=== PATIENT | female | born 1960 | race Two or more races ===

== ENCOUNTER 2020-05-13 17:07 | Inpatient (IN) | payer MEDICARE, OTHER ==
[~2020-05-13] VITALS: Ht 160 cm; Wt 172.8 kg
[2020-05-13 17:07] VITALS: BP 103/76
--- NOTE | 2020-05-13 17:45 | Emergency Room Report ---
History of Present Illness General Chief Complaint: Multiple Trauma/Fall Source: Patient (Ashia Muniz) Present Illness HPI 59-year-old female with history of diabetes, hypertension, edema, and morbid obesity here brought in by paramedics due to fall in the bathroom. Patient reports that she slipped on a carpet and fell and has been really difficult for her to ambulate lately. Patient also has abdominal pain hernia. Patient reports that she last saw her primary doctor few days ago and was told to continue taking the same dose of water pills, insulin, diabetes medication blood pressure medication. Patient is also taking gabapentin and Tylenol for pain. Denies any head injury loss of consciousness. Denies any new onset tingling numbness in lower extremities. (Ashia Muniz) Allergies: Coded Allergies: CIPROFLOXACIN (Verified Allergy, Unknown, 05/13/20) LATEX (Verified Allergy, Unknown, 05/13/20) PENICILLINS (Verified Allergy, Unknown, 05/13/20) PHENYTOIN (Verified Allergy, Unknown, 05/13/20) COVID-19 Screening Contact w/high risk pt: No Recent Travel to affected area: No Experienced COVID-19 symptoms?: No COVID-19 Testing performed AU PAIR: No (Ashia Muniz) Patient History Past Medical History: see triage record Past Surgical History: none Pertinent Family History: none Now: No Immunizations: UTD Reviewed Nursing Documentation: PMH: Agreed; PSxH: Agreed (Ashia Muniz) Nursing Documentation-PMH Past Medical History: No History, Except For Hx Diabetes: Yes (Ashia Muniz) Review of Systems All Other Systems: negative except mentioned in HPI (Ashia Muniz) Physical Exam Vital Signs Date Time Temp Pulse Resp B/P (MAP) Pulse Ox O2 Delivery O2 Flow Rate FiO2 05/13/20 17:01 98.4 76 16 103/76 (85) 96 Room Air Sp02 EP Interpretation: abnormal - Elevated blood sugar General Appearance: mild distress Head: normocephalic, atraumatic Eyes: bilateral eye normal inspection, bilateral eye PERRL ENT: hearing grossly normal, normal pharynx, no angioedema, normal voice Neck: full range of motion, supple/symm/no masses Respiratory: chest non-tender, lungs clear, normal breath sounds, no rhonchi, no respiratory distress, no retraction, no wheezing, speaking full sentences Cardiovascular #1: regular rate, rhythm, no edema, no murmur Cardiovascular #2: 2+ dorsalis pedis (R), 2+ dorsalis pedis (L) Gastrointestinal: normal bowel sounds, non tender, soft, no mass, no organomegaly, no peritonitis, no bruit, no guarding, no pulsatile mass, no rebound Rectal: deferred Genitourinary: no CVA tenderness Musculoskeletal: back normal, no calf tenderness, swelling - Left lower extremity and ankle Neurologic: alert, motor strength/tone normal, oriented x3, sensory intact, responsive, speech normal Psychiatric: judgement/insight normal, memory normal, mood/affect normal, no suicidal/homicidal ideation Skin: no rash Lymphatic: no adenopathy (Ashia Muniz) Medical Decision Making PA Attestation All my diagnosis and treatment plans were reviewed ad discussed with my supervising physician Dr. Warren (Ashia Muniz) Diagnostic Impression: Primary Impression: At high risk for falls Additional Impressions: Hyperglycemia Ankle sprain ER Course 59-year-old female with history of diabetes, hypertension, edema, and morbid obesity here brought in by paramedics due to fall in the bathroom. Patient reports that she slipped on a carpet and fell and has been really difficult for her to ambulate lately. Patient also has abdominal pain hernia. Patient reports that she last saw her primary doctor few days ago and was told to continue taking the same dose of water pills, insulin, diabetes medication blood pressure medication. Patient is also taking gabapentin and Tylenol for pain. Denies any head injury loss of consciousness. Denies any new onset tingling numbness in lower extremities. Ddx considered but are not limited to: Fall risk, morbid obesity, DKA, hyperglycemia, ankle sprain, ankle strain, ankle fracture, ankle contusion Vital signs: are WNL, pt. is afebrile H&PE are most consistent with: High fall risk, hyperglycemia, ankle sprain ORDERS: Left ankle x-ray, left foot x-ray, left knee x-ray, pelvic CT noncontrast, CBC, CMP, UA, PT and PTT, troponin ED INTERVENTIONS: Tramadol Patient was admitted with diagnosis of fall risk and hyperglycemia to Dr. Grissom under supervision of : Kelvin pt stable at time of admission (Ashia Muniz) ER Course Patient was noted to have some difficulty with ambulation. Patient is unable to ambulate with a steady gait due to prior back injury as well as left ankle pain. X-ray imaging showed no evidence of fracture. Dr. Patrick Johnston was contacted for admission due to recent injury and inability to ambulate as well as uncontrolled diabetes. Labs Test 05/13/20 17:20 05/13/20 18:05 Urine Color Pale yellow Urine Appearance Clear Urine pH 6.5 (4.5-8.0) Urine Specific [place] 1.005 (1.005-1.035) Urine Protein Negative (NEGATIVE) Urine Glucose (UA) 4+ (NEGATIVE) Urine Ketones Negative (NEGATIVE) Urine Blood Negative (NEGATIVE) Urine Nitrite Negative (NEGATIVE) Urine Bilirubin Negative (NEGATIVE) Urine Urobilinogen Normal MG/DL (0.0-1.0) Urine Leukocyte Esterase Negative (NEGATIVE) Urine Opiates Screen Negative (NEGATIVE) Urine Barbiturates Screen Negative (NEGATIVE) Phencyclidine (PCP) Screen Negative (NEGATIVE) Urine Amphetamines Screen Negative (NEGATIVE) Urine Benzodiazepines Screen Negative (NEGATIVE) Urine Cocaine Screen Negative (NEGATIVE) Urine Marijuana (THC) Screen Negative (NEGATIVE) Acetone, Qualitative Negative White Blood Count 12.0 K/UL (4.8-10.8) Red Blood Count 5.09 M/UL (4.20-5.40) Hemoglobin 13.1 G/DL (12.0-16.0) Hematocrit 43.4 % (37.0-47.0) Mean Corpuscular Volume 85 FL (80-99) Mean Corpuscular Hemoglobin 25.7 PG (27.0-31.0) Mean Corpuscular Hemoglobin Concent 30.1 G/DL (32.0-36.0) Red Cell Distribution Width 17.6 % (11.6-14.8) Platelet Count 369 K/UL (150-450) Mean Platelet Volume 6.3 FL (6.5-10.1) Neutrophils (%) (Auto) 72.0 % (45.0-75.0) Lymphocytes (%) (Auto) 17.3 % (20.0-45.0) Monocytes (%) (Auto) 5.9 % (1.0-10.0) Eosinophils (%) (Auto) 3.7 % (0.0-3.0) Basophils (%) (Auto) 1.1 % (0.0-2.0) Prothrombin Time 10.5 SEC (9.30-11.50) Prothromb Time International Ratio 0.9 (0.9-1.1) Activated Partial Thromboplast Time 26 SEC (23-33) Sodium Level 138 MMOL/L (136-145) Potassium Level 3.5 MMOL/L (3.5-5.1) Chloride Level 98 MMOL/L (98-107) Carbon Dioxide Level 32 MMOL/L (21-32) Anion Gap 8 mmol/L (5-15) Blood Urea Nitrogen 22 mg/dL (7-18) Creatinine 1.3 MG/DL (0.55-1.30) Estimat Glomerular Filtration Rate 42.2 mL/min (>60) Glucose Level 271 MG/DL (74-106) Calcium Level 9.3 MG/DL (8.5-10.1) Total Bilirubin 0.2 MG/DL (0.2-1.0) Aspartate Amino Transf (AST/SGOT) 18 U/L (15-37) Alanine Aminotransferase (ALT/SGPT) 27 U/L (12-78) Alkaline Phosphatase 195 U/L (46-116) Troponin I 0.000 ng/mL (0.000-0.056) Total Protein 8.3 G/DL (6.4-8.2) Albumin 3.3 G/DL (3.4-5.0) Globulin 5.0 g/dL Albumin/Globulin Ratio 0.7 (1.0-2.7) (Korey Warren MD) Other X-Ray Diagnostic Results Other X-Ray Diagnostic Results #1: X-Ray ordered: left foot # of Views/Limited Vs Complete: 3 View Indication: Pain EP Interpretation: Yes PA Xray: Interpretation reviewed, by supervising MD, and agrees with findings. Interpretation: no dislocation, no soft tissue swelling, no fractures Impression: No acute disease Electronically Signed by: Ashia Scanlon PA-C Other X-Ray Diagnostic Results #2: X-Ray ordered: left ankle # of Views/Limited Vs Complete: 3 View Indication: Swelling EP Interpretation: Yes PA Xray: by supervising , and agrees with findings. Interpretation: no dislocation, no fractures Impression: No acute disease Electronically Signed by: Ashia Scanlon PA-C Other X-Ray Diagnostic Results #3: X-Ray ordered: Left knee # of Views/Limited Vs Complete: 3 View Indication: Pain EP Interpretation: Yes PA Xray: Interpretation reviewed, by supervising MD, and agrees with findings. Interpretation: no dislocation, no soft tissue swelling, no fractures Impression: No acute disease Electronically Signed by: Ashia Scanlon PA-C Other X-Ray Diagnostic Results #4: X-Ray ordered: Left femur # of Views/Limited Vs Complete: 2 View Indication: Pain EP Interpretation: Yes PA Xray: Interpretation reviewed, by supervising MD Interpretation: no dislocation, no soft tissue swelling, no fractures Impression: No acute disease Electronically Signed by: Ashia Scanlon PA-C (Ashia Muniz) CT/MRI/US Diagnostic Results CT/MRI/US Diagnostic Results : Imaging Test Ordered: CT pelvis no contrast Impression FINDINGS: Bowel: Unremarkable. No obstruction. Appendix: No findings to suggest acute appendicitis. Intraperitoneal space: Unremarkable. Bladder: Distended bladder. Reproductive: Hysterectomy. Bones/joints: No acute fracture or dislocation. Soft tissues: Ventral subcutaneous edema. Vasculature: Unremarkable. Lymph nodes: Nonspecific inguinal lymph nodes. IMPRESSION: No acute fracture or dislocation. (Ashia Muniz) Last Vital Signs Date Time Temp Pulse Resp B/P (MAP) Pulse Ox O2 Delivery O2 Flow Rate FiO2 05/13/20 17:07 98.4 76 16 103/76 96 Room Air (Ashia Muniz) Status: improved (Korey Warren MD) Disposition: ADMITTED INPATIENT Condition: Stable Ashia Muniz May 13, 2020 17:45 Korey Warren MD May 13, 2020 18:58
--- NOTE | 2020-05-13 18:01 | Diagnostic Imaging Report ---
EXAM: CT Pelvis Without Intravenous Contrast CLINICAL HISTORY: TRAUMA TECHNIQUE: Axial computed tomography images of the pelvis without intravenous contrast. CTDI is 71 mGy and DLP is 2338 mGy-cm. One or more of the following dose reduction techniques were used: automated exposure control, adjustment of the mA and/or kV according to patient size, use of iterative reconstruction technique. COMPARISON: No relevant prior studies available. FINDINGS: Bowel: Unremarkable. No obstruction. Appendix: No findings to suggest acute appendicitis. Intraperitoneal space: Unremarkable. Bladder: Distended bladder. Reproductive: Hysterectomy. Bones/joints: No acute fracture or dislocation. Soft tissues: Ventral subcutaneous edema. Vasculature: Unremarkable. Lymph nodes: Nonspecific inguinal lymph nodes. IMPRESSION: No acute fracture or dislocation.
[2020-05-13 18:14] LABS: APPEARANCE,URINE CLEAR; BILIRUBIN, URINE NEGATIVE (NEGATIVE); COLOR,URINE PALE YELLOW; GLUCOSE, URINE (UA) 4+ (NEGATIVE); KETONES,URINE NEGATIVE (NEGATIVE); LEUKOCYTE ESTERASE ,URINE NEGATIVE (NEGATIVE); NITRITE,URINE NEGATIVE (NEGATIVE); PH,URINE 6.5 (4.5-8.0); PROTEIN,URINE NEGATIVE (NEGATIVE); UROBILINOGEN,URINE NORMAL MG/DL (0.0-1.0)
[2020-05-13] MEDS ORDERED: traMADol 50mg tab ORAL ONE (18:15)
[2020-05-13 18:26] LABS: BASOPHILS % (AUTO) 1.1 % (0.0-2.0); EOSINOPHILS % (AUTO) 3.7 % (0.0-3.0); HEMATOCRIT 43.4 % (37.0-47.0); HEMOGLOBIN 13.1 G/DL (12.0-16.0); LYMPHOCYTES % (AUTO) 17.3 % (20.0-45.0); MEAN CORPUSCULAR VOLUME 85 FL (80-99); MONOCYTES % (AUTO) 5.9 % (1.0-10.0); PLATELET COUNT 369 K/UL (150-450); RED BLOOD COUNT 5.09 M/UL (4.20-5.40); RED CELL DISTRIBUTION WIDTH 17.6 % (11.6-14.8)
[2020-05-13 18:28] LABS: ANION GAP 8 mmol/L (5-15); BLOOD UREA NITROGEN 22 mg/dL (7-18); CALCIUM 9.3 MG/DL (8.5-10.1); CARBON DIOXIDE 32 MMOL/L (21-32); CHLORIDE 98 MMOL/L (98-107); CREATININE 1.3 MG/DL (0.55-1.30); POTASSIUM 3.5 MMOL/L (3.5-5.1); SODIUM 138 MMOL/L (136-145)
[2020-05-13 18:33] LABS: ALANINE AMINOTRANSFERASE 27 U/L (12-78); ALBUMIN 3.3 G/DL (3.4-5.0); ALBUMIN/GLOBULIN RATIO 0.7 (1.0-2.7); ALKALINE PHOSPHATASE 195 U/L (46-116); ASPARTATE AMINO TRANSFERASE 18 U/L (15-37); BILIRUBIN,TOTAL 0.2 MG/DL (0.2-1.0); INR 0.9 (0.9-1.1)
[2020-05-13] MEDS ORDERED: ATORVASTATIN CA40 MG ORAL (19:52)
[2020-05-13] MEDS ORDERED: AMLODIPINE BESY10 MG ORAL (19:52)
[2020-05-13] MEDS ORDERED: LEVOTHYROXINE125 MCG ORAL (19:52)
[2020-05-13] MEDS ORDERED: GABAPENTIN600 MG ORAL (19:52)
[2020-05-13] MEDS ORDERED: SPIRONOLACTONE100 MG ORAL (19:52)
[2020-05-13] MEDS ORDERED: POTASSIUM CHLO20 ME1 ORAL (19:52)
[2020-05-13] MEDS ORDERED: ASPIR 8181 MG ORAL (19:52)
[2020-05-13 20:00] VITALS: BP 160/73
[2020-05-13] MEDS: Enoxaparin 60mg Inj SUBQ SCH (21:39)
[2020-05-14] VITALS: BP 120/67
[2020-05-14 04:00] VITALS: BP 139/66
[2020-05-14] MEDS: traMADol 50mg tab ORAL PRN ×2 (04:23→10:59)
[2020-05-14 08:00] VITALS: BP 156/79
[2020-05-14] MEDS: Bumetanide 1mg tab ORAL SCH ×2 (09:04→17:11)
[2020-05-14] MEDS: Aspirin EC 81mg tab ORAL SCH (09:05)
[2020-05-14] MEDS: Spironolactone 50mg tab ORAL SCH (09:05)
[2020-05-14] MEDS: Vitamin D 400 INTLU TAB ORAL SCH (09:05)
[2020-05-14] MEDS: Enoxaparin 60mg Inj SUBQ SCH (09:08)
--- NOTE | 2020-05-14 09:30 | History and Physical Report ---
DATE OF ADMISSION: 05/13/2020 CHIEF COMPLAINT: Inability to walk, fall, severe knee pain. HISTORY OF PRESENT ILLNESS: The patient is a 59-year-old female. She has multiple medical problems including history of morbid obesity, congestive heart failure, diabetes, hypertension, sleep apnea. She presented from home with complaints of a fall. According to the patient, she was ambulating to the bathroom when she slipped on a rug. She stated "splits." She fell over her right knee and then twisted her left knee while she was falling. She immediately had severe pain in both knees, but more in the left knee. She was unable to get up or ambulate and she called paramedics, who got her to her bed, but she was still unable to ambulate. She was brought to the emergency room. On evaluation there, a CT scan of the hip showed no evidence of any fractures, but because the patient cannot ambulate, she is now admitted for further evaluation and care. PAST MEDICAL HISTORY: As above. Includes history of sleep apnea, carpal tunnel syndrome. PAST SURGICAL HISTORY: Includes hysterectomy and cholecystectomy. CURRENT MEDICATIONS: Reconciled and reviewed. ALLERGIES: Include Dilantin, benazepril, losartan, and latex. SOCIAL HISTORY: Negative for tobacco, ethanol, or drugs. FAMILY HISTORY: Significant for heart disease. REVIEW OF SYSTEMS: GENERAL: No fevers or chills. HEENT: No headaches or visual changes. CARDIOPULMONARY: No chest pain or shortness of breath. GASTROINTESTINAL: No nausea or vomiting. GENITOURINARY: No urgency or frequency. MUSCULOSKELETAL: Severe hip and bilateral knee pain. NEUROLOGIC: No history of seizures. PHYSICAL EXAMINATION: VITAL SIGNS: Temperature 97.8, pulse 74, respirations 17, blood pressure 139/66. GENERAL: The patient is a well-developed female, in no apparent distress. She is awake, alert, and oriented x4. HEENT: Head was normocephalic, atraumatic. Pupils are equal, round, and reactive to light. Sclerae were anicteric. The oropharynx is clear. Mucous membranes are moist. NECK: Supple. There is no adenopathy noted. HEART: Regular rate and rhythm. No murmurs, rubs, or gallops. LUNGS: Clear to auscultation bilaterally. ABDOMEN: Soft, obese, nontender, nondistended. EXTREMITIES: Without clubbing or cyanosis. There is 2+ edema noted. The patient is exquisitely tender to palpation over both knees. LABORATORY DATA: White count 12, hemoglobin 13, and platelet count 369,000. Sodium 138, potassium 3.5, chloride 98, bicarb 32, BUN 22, and creatinine 1.3. Urine was clear. Toxicology screen was clear. ASSESSMENT: This is a 59-year-old female with history of morbid obesity, hypertension, diabetes, sleep apnea, congestive heart failure, admitted with complaints of mechanical fall. She is unable to ambulate. I am unable to find any imaging of the lower extremities. PLAN: We will obtain x-rays of the knees and most likely a CT scan. The patient possibly benefit from an MRI, but she may be over the weight limit for the MRI. Continue her outpatient cardiac and diabetic regimen. In the interim, Orthopedics and Cardiology evaluations will be obtained. The patient will be placed on DVT prophylaxis. Patrick Johnston M.D. DR: MAXIMILIANO JOB#: [id number] CC:
[2020-05-14 12:00] VITALS: BP 150/69
--- NOTE | 2020-05-14 13:21 | Diagnostic Imaging Report ---
EXAM: X-RAY XRAY Femur 2v L CLINICAL HISTORY: Trauma with leg pain. COMPARISON: None FINDINGS: Total of 2 views of the mid to distal left femur were obtained. Study very limited due to patient's body habitus. Only 2 views were obtained covering the mid to distal femur only. Proximal femur and hip area not included. There is no fracture, bony lesions or erosions. Alignment of the knee appears anatomic. Surrounding soft tissue is normal. IMPRESSION: NO FRACTURE NOTED IN THE MID TO DISTAL FEMUR. PROXIMAL FEMUR AND HIP AREA ARE NOT INCLUDED.
--- NOTE | 2020-05-14 13:22 | Diagnostic Imaging Report ---
EXAM: X-RAY XRAY Knee 3v LT CLINICAL HISTORY: Trauma with knee pain. COMPARISON: None FINDINGS: Total of 3 views of the left knee were obtained. Alignment is anatomic. There is no fracture, bony lesions or erosions. Degenerative joint space narrowing and osteophyte formation noted. Surrounding soft tissue is normal. IMPRESSION: MILD TO MODERATE DEGENERATIVE CHANGES. NO ACUTE BONY ABNORMALITY.
--- NOTE | 2020-05-14 13:25 | Diagnostic Imaging Report ---
EXAM: X-RAY XRAY Foot Complete L CLINICAL HISTORY: Trauma and foot pain. COMPARISON: None FINDINGS: Total of 3 views of the left foot were obtained. Study limited by body habitus. The toes are marginally visualized. There is diffuse osteopenia. No definite acute fractures seen. Joint spaces are unremarkable. There is marked soft tissue swelling. Moderate-sized calcaneal spur noted. IMPRESSION: LIMITED STUDY. NO GROSS ACUTE BONY ABNORMALITY SEEN TO THE EXTENT VISUALIZED.
--- NOTE | 2020-05-14 13:26 | Diagnostic Imaging Report ---
EXAM: X-RAY XRAY Ankle Compl Min 3v L CLINICAL HISTORY: Trauma and ankle pain. COMPARISON: None FINDINGS: Total of 3 views of the left ankle were obtained. Alignment is anatomic. There is no fracture, bony lesions or erosions. There is a calcaneal spur. Joint spaces appear anatomic. Soft tissue swelling noted. IMPRESSION: SOFT TISSUE SWELLING. NO FRACTURE.
--- NOTE | 2020-05-14 14:13 | Diagnostic Imaging Report ---
EXAM: CT CT Knee no Contrast L CLINICAL HISTORY: Trauma knee pain. TECHNIQUE: Axial images obtained through the left knee with subsequent sagittal and coronal reformat images. All CT scans at this facility hospitals are performed using dose modulation techniques as appropriate to a performed exam including the following: automated exposure control with adjustment of the mA and/or kV according to patient size. RADIATION DOSE: CTDIvol: 12.2 mGy DLP: 416.6 mGy-cm Dose information generated by the CT scanner is available in PACS. COMPARISON: None FINDINGS: Alignment of the knee is anatomic. Bony structures are intact. There is no fracture, bony lesion or erosion. Degenerative changes of the knee noted with nonuniform joint space narrowing and osteophyte formation. There is no joint effusion. Diffuse soft tissue edema demonstrated. IMPRESSION: DEGENERATIVE CHANGES OF THE KNEE. NO ACUTE FRACTURE OR MALALIGNMENT. SOFT TISSUE EDEMA.
--- NOTE | 2020-05-14 14:17 | Diagnostic Imaging Report ---
EXAM: CT CT Knee no Contrast R CLINICAL HISTORY: Trauma with knee pain. TECHNIQUE: Axial images obtained through the right knee with subsequent sagittal and coronal reformat images. All CT scans at this facility hospitals are performed using dose modulation techniques as appropriate to a performed exam including the following: automated exposure control with adjustment of the mA and/or kV according to patient size. RADIATION DOSE: CTDIvol: 12.2 mGy DLP: 416.6 mGy-cm Dose information generated by the CT scanner is available in PACS. COMPARISON: None FINDINGS: Alignment of the knee is anatomic. Bony structures are intact. There is no fracture, bony lesion or erosion. Degenerative changes of the knee noted with nonuniform joint space narrowing and osteophyte formation. A small joint effusion is present. There is mild soft tissue edema less than the contralateral left side.. IMPRESSION: DEGENERATIVE CHANGES OF THE KNEE WITH SMALL JOINT EFFUSION. NO ACUTE FRACTURE OR MALALIGNMENT. MILD SOFT TISSUE EDEMA, LESS THAN THE CONTRALATERAL LEFT SIDE.
[2020-05-14 15:45] VITALS: BP 122/67
[2020-05-14] MEDS ORDERED: Levemir Flexpen SUBQ SCH (18:30)
[2020-05-14] MEDS ORDERED: NovoLOG Insulin Flexpen SUBQ ONE (18:30)
[2020-05-14] MEDS: NovoLOG Insulin Flexpen SUBQ SCH ×2 (19:56→21:47)
[2020-05-14 20:00] VITALS: BP 125/58
[2020-05-14] MEDS: Levemir Flexpen SUBQ SCH (20:24)
[2020-05-15] VITALS: BP 120/59
[2020-05-15] MEDS: traMADol 50mg tab ORAL PRN ×2 (01:55→17:09)
[2020-05-15 04:00] VITALS: BP 110/65
[2020-05-15] MEDS: NovoLOG Insulin Flexpen SUBQ SCH ×7 (05:54→20:41)
[2020-05-15 08:00] VITALS: BP 119/61
[2020-05-15] MEDS: Vitamin D 400 INTLU TAB ORAL SCH (08:26)
[2020-05-15] MEDS: Spironolactone 50mg tab ORAL SCH (08:27)
[2020-05-15] MEDS: Bumetanide 1mg tab ORAL SCH ×2 (08:27→17:08)
[2020-05-15] MEDS: Aspirin EC 81mg tab ORAL SCH (08:28)
[2020-05-15] MEDS: Enoxaparin 60mg Inj SUBQ SCH (08:31)
[2020-05-15] MEDS: Levemir Flexpen SUBQ SCH (08:38)
--- NOTE | 2020-05-15 10:15 | Consultation ---
DATE OF CONSULTATION: 05/15/2020 ENDOCRINOLOGY CONSULTATION CONSULTING PHYSICIAN: Stephen Nixon MD. REFERRING PHYSICIAN: Patrick Johnston MD. REASON FOR CONSULTATION: Diabetes management. HISTORY OF PRESENT ILLNESS: The patient is a 59-year-old morbidly obese female with history of diabetes with high insulin demand and has developed high level of insulin resistance as well as CHF, hypertension, and sleep apnea, presented to the hospital with complaint of fall on to the knee and hip. The patient was not able to ambulate. The fracture was ruled out by CT imaging. Diabetes is managed as an outpatient with insulin U-500 120 units in the morning and 100 units in the evening, U-500 is not formulary at the [facility]. Endocrinology was consulted in order to assist in the management of diabetes. PAST MEDICAL HISTORY: 1. Diabetes. 2. Morbid obesity. 3. Hypertension. 4. Hyperlipidemia. 5. Sleep apnea. 6. CHF. 7. Hypothyroidism. PAST SURGICAL HISTORY: 1. Hysterectomy. 2. Cholecystectomy. MEDICATIONS: Reviewed and reconciled. ALLERGIES: To Dilantin, benazepril, losartan, and latex. SOCIAL HISTORY: No smoking, alcohol, or drug use. FAMILY HISTORY: Significant for heart disease. REVIEW OF SYSTEMS: As per HPI. PHYSICAL EXAMINATION: VITAL SIGNS: Blood pressure is 139/66, heart rate 74, respiratory rate 17, temperature 97.8. HEENT: Morbidly obese. NECK: Difficult to assess JVD. HEART: Distant breath sounds. ABDOMEN: Positive bowel sounds. Nondistended. EXTREMITIES: Positive for edema. LABORATORY DATA: WBC 12, hemoglobin 13, hematocrit 42, platelets of 369,000. Sodium 138, potassium 3.5, chloride 90, bicarb 32, BUN 23, creatinine 1.3. DIAGNOSES: 1. Fall with knee pain. 2. Diabetes, out of control. 3. Hypothyroidism. PLAN: 1. Levemir 60 units at bedtime. 2. NovoLog 20 units before each meal. 3. NovoLog sliding scale high dose, before meals and at bedtime. 4. Levothyroxine 200 mcg daily. 5. Check TSH, free T4. Further adjustment according to blood glucose values. Hypoglycemia protocol has been ordered. Thank you, Dr. Johnston, for the courtesy of this consultation. Stephen Nixon M.D. DR: BRITTANY JOB#: [id number] CC:
[2020-05-15 11:52] VITALS: BP 131/53
--- NOTE | 2020-05-15 14:57 | General Progress Note ---
Assessment/Plan Problem List: (1) Morbid obesity ICD Codes: E66.01 - Morbid (severe) obesity due to excess calories SNOMED: 179058737 (2) Hyperglycemia ICD Codes: R73.9 - Hyperglycemia, unspecified SNOMED: 11929682 (3) At high risk for falls ICD Codes: Z91.81 - History of falling SNOMED: 037798623158218563 (4) Ankle sprain ICD Codes: S93.409A - Sprain of unspecified ligament of unspecified ankle, initial encounter SNOMED: 80393205 Status: stable, not improved Assessment/Plan: tried to do mri- pt to heavy for scanner pt/ot pain rx diabetes rx per endo refusing snf. Subjective ROS Limited/Unobtainable: No Constitutional: Reports: malaise, weakness HEENT: Reports: no symptoms Cardiovascular: Reports: no symptoms Respiratory: Reports: no symptoms Gastrointestinal/Abdominal: Reports: no symptoms Genitourinary: Reports: no symptoms Neurologic/Psychiatric: Reports: no symptoms Endocrine: Reports: no symptoms Hematologic/Lymphatic: Reports: no symptoms Allergies: Coded Allergies: CIPROFLOXACIN (Verified Allergy, Unknown, 05/13/20) LATEX (Verified Allergy, Unknown, 05/13/20) PENICILLINS (Verified Allergy, Unknown, 05/13/20) PHENYTOIN (Verified Allergy, Unknown, 05/13/20) All Systems: reviewed and negative except above Subjective no events. severe left knee pain. cant walk, ct results reviewed with pt. no fracture. Endo appreciated. Objective Last 24 Hour Vital Signs Date Time Temp Pulse Resp B/P (MAP) Pulse Ox O2 Delivery O2 Flow Rate FiO2 05/15/20 11:52 98.4 70 20 131/53 (79) 92 05/15/20 08:35 Nasal Cannula 1.0 05/15/20 08:30 93 05/15/20 08:28 69 119/61 05/15/20 08:00 98.2 69 18 119/61 (80) 88 05/15/20 04:00 98.4 75 20 110/65 (80) 97 05/15/20 00:00 98.1 80 21 120/59 (79) 97 05/14/20 21:00 Room Air 05/14/20 20:00 98.1 79 21 125/58 (80) 97 05/14/20 15:45 98.8 88 21 122/67 (85 95 Intake and Output 05/14/20 05/15/20 19:00 07:00 Intake Total 960 ml Output Total 2800 ml 1100 ml Balance -1840 ml -1100 ml Intake Oral 960 ml Output Urine Total 2800 ml 1100 ml # Voids 2 Laboratory Tests 05/15/20 08:20: Thyroid Stimulating Hormone (TSH) 4.576H, Free Thyroxine 1.11 Height (Feet): 5 Height (Inches): 3.00 Weight (Pounds): 382 General Appearance: WD/WN, alert, morbidly obese EENT: PERRL/EOMI, normal ENT inspection Neck: non-tender, normal alignment, supple Cardiovascular: normal peripheral pulses, normal rate Respiratory/Chest: chest wall non-tender, lungs clear, normal breath sounds Abdomen: normal bowel sounds, non tender, soft, no organomegaly Edema: 2+ Leg (L), 2+ Leg (R), 2+ Pedal (L), 2+ Pedal (R) Edema: moderate edema 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
[2020-05-15 16:08] VITALS: BP 124/59
[2020-05-15] MEDS ORDERED: Bisacodyl EC 5mg tab ORAL PRN (17:00)
[2020-05-15 20:00] VITALS: BP 115/67
[2020-05-15] MEDS ORDERED: Milk of Magnesia 30ml Ud ORAL PRN (23:00)
[2020-05-16] VITALS: BP 153/65
[2020-05-16 04:00] VITALS: BP 139/95
[2020-05-16] MEDS: traMADol 50mg tab ORAL PRN ×2 (04:13→15:50)
[2020-05-16] MEDS: NovoLOG Insulin Flexpen SUBQ SCH ×6 (05:41→21:08)
--- NOTE | 2020-05-16 06:42 | General Progress Note ---
Assessment/Plan Problem List: (1) Diabetes mellitus out of control ICD Codes: E11.65 - Type 2 diabetes mellitus with hyperglycemia SNOMED: 60135740, 633153757 (2) Hyperglycemia ICD Codes: R73.9 - Hyperglycemia, unspecified SNOMED: 26060164 (3) Ankle sprain ICD Codes: S93.409A - Sprain of unspecified ligament of unspecified ankle, initial encounter SNOMED: 57099779 (4) Morbid obesity ICD Codes: E66.01 - Morbid (severe) obesity due to excess calories SNOMED: 167440212 (5) At high risk for falls ICD Codes: Z91.81 - History of falling SNOMED: 070332700441280681 Status: stable, not improved Assessment/Plan: increase Levemir to 80 units qam increase Novolog to 28 units ac tid continue Novolog sliding scale ac / hs continue Levothyroxine 200 mcg daily Subjective Allergies: Coded Allergies: CIPROFLOXACIN (Verified Allergy, Unknown, 05/13/20) LATEX (Verified Allergy, Unknown, 05/13/20) PENICILLINS (Verified Allergy, Unknown, 05/13/20) PHENYTOIN (Verified Allergy, Unknown, 05/13/20) Subjective events noted glucose values are still elevated TSH is mildly elevated Item Value Date Time Bedside Blood Glucose 246 mg/dl H 05/16/20 0542 Bedside Blood Glucose 252 mg/dl H 05/15/20 2049 Bedside Blood Glucose 254 mg/dl H 05/15/20 1652 Bedside Blood Glucose 182 mg/dl H 05/15/20 1157 Bedside Blood Glucose 181 mg/dl H 05/15/20 0838 Bedside Blood Glucose 181 mg/dl H 05/15/20 0626 Objective Last 24 Hour Vital Signs Date Time Temp Pulse Resp B/P (MAP) Pulse Ox O2 Delivery O2 Flow Rate FiO2 05/16/20 04:00 97.5 64 20 139/95 (110) 97 05/16/20 00:00 98.1 75 20 153/65 (94) 97 05/15/20 23:54 82 20 95 30 05/15/20 20:51 Nasal Cannula 1.0 05/15/20 20:00 98.0 65 19 115/67 (83) 98 05/15/20 16:08 98.8 78 18 124/59 (80) 90 05/15/20 11:52 98.4 70 20 131/53 (79) 92 05/15/20 08:35 Nasal Cannula 1.0 05/15/20 08:30 93 05/15/20 08:28 69 119/61 05/15/20 08:00 98.2 69 18 119/61 (80) 88 Intake and Output 05/15/20 05/16/20 19:00 07:00 Intake Total 500 ml Output Total 1700 ml 2000 ml Balance -1200 ml -2000 ml Intake Oral 500 ml Output Urine Total 1700 ml 2000 ml # Voids 2 Laboratory Tests 05/15/20 08:20: Thyroid Stimulating Hormone (TSH) 4.576H, Free Thyroxine 1.11 Height (Feet): 5 Height (Inches): 3.00 Weight (Pounds): 382 General Appearance: no apparent distress Neck: normal alignment Cardiovascular: normal rate Respiratory/Chest: lungs clear Abdomen: normal bowel sounds Objective Current Medications Medications (Trade) Dose Ordered Sig/Avelino Route PRN Reason Start Time Stop Time Status Last Admin Dose Admin Acetaminophen (Tylenol) 650 mg Q4H PRN ORAL Mild Pain (Pain Scale 1-3) 05/13/20 19:45 06/12/20 19:44 05/15/20 08:29 Amlodipine Besylate (Norvasc) 10 mg DAILY ORAL 05/14/20 09:00 06/13/20 08:59 05/15/20 08:28 Aspirin (Ecotrin) 81 mg DAILY ORAL 05/14/20 09:00 06/28/20 08:59 05/15/20 08:28 Bisacodyl (Dulcolax) 5 mg DAILYPRN PRN ORAL Constipation 05/15/20 17:00 08/13/20 16:59 05/15/20 17:08 Bumetanide (Bumex) 4 mg BID ORAL 05/14/20 09:00 06/13/20 08:59 05/15/20 17:08 Dextrose (Dextrose 50%) 25 ml Q30M PRN IV Hypoglycemia 05/14/20 18:33 08/12/20 18:32 Dextrose (Dextrose 50%) 50 ml Q30M PRN IV Hypoglycemia 05/14/20 18:33 08/12/20 18:32 Enoxaparin Sodium (Lovenox) 60 mg DAILY SUBQ 05/13/20 21:00 08/11/20 20:59 05/15/20 08:31 Insulin Aspart (NovoLOG) BEFORE MEALS AND HS SUBQ 05/14/20 21:00 08/12/20 20:59 05/16/20 05:42 Insulin Aspart (NovoLOG) 20 units NOVOTIAC SUBQ 05/14/20 19:30 08/12/20 19:29 05/16/20 05:41 Insulin Detemir (Levemir) 60 units DAILY SUBQ 05/14/20 20:00 08/12/20 19:59 05/15/20 08:38 Levothyroxine Sodium (Synthroid) 200 mcg DAILY@0630 ORAL 05/15/20 06:30 06/14/20 06:29 05/16/20 05:38 Magnesium Hydroxide (Mom) 30 ml Q8H PRN ORAL Constipation 05/15/20 23:00 06/14/20 22:59 Ondansetron HCl (Zofran) 4 mg Q6H PRN IVP Nausea & Vomiting 05/13/20 19:45 06/12/20 19:44 05/15/20 08:38 Potassium Chloride (K-Dur) 20 meq DAILY ORAL 05/14/20 09:00 08/12/20 08:59 05/15/20 08:28 Spironolactone (Aldactone) 50 mg DAILY ORAL 05/14/20 09:00 06/13/20 08:59 05/15/20 08:27 Tramadol HCl (Ultram) 50 mg Q6H PRN ORAL Moderate Pain (Pain Scale 4-6) 05/13/20 19:45 05/20/20 19:44 05/16/20 04:13 Vitamin D (Vitamin D) 800 intlu DAILY ORAL 05/14/20 09:00 06/13/20 08:59 05/15/20 08:26 Stephen Nixon MD May 16, 2020 06:42
[2020-05-16 08:00] VITALS: BP 138/60
--- NOTE | 2020-05-16 08:53 | General Progress Note ---
Assessment/Plan Problem List: (1) Morbid obesity ICD Codes: E66.01 - Morbid (severe) obesity due to excess calories SNOMED: 502545054 (2) Hyperglycemia ICD Codes: R73.9 - Hyperglycemia, unspecified SNOMED: 90987551 (3) At high risk for falls ICD Codes: Z91.81 - History of falling SNOMED: 632850026044323397 (4) Ankle sprain ICD Codes: S93.409A - Sprain of unspecified ligament of unspecified ankle, initial encounter SNOMED: 81354849 Status: stable, not improved Assessment/Plan: tried to do mri- pt to heavy for scanner pt/ot pain rx diabetes rx per endo refusing snf. admits she cannor go home check cxr add laxatives pain rx o2 as needed ?aru Subjective ROS Limited/Unobtainable: No Constitutional: Reports: malaise, weakness HEENT: Reports: no symptoms Cardiovascular: Reports: no symptoms Respiratory: Reports: cough, shortness of breath Gastrointestinal/Abdominal: Reports: constipated Genitourinary: Reports: no symptoms Neurologic/Psychiatric: Reports: no symptoms Endocrine: Reports: no symptoms Hematologic/Lymphatic: Reports: no symptoms Allergies: Coded Allergies: CIPROFLOXACIN (Verified Allergy, Unknown, 05/13/20) LATEX (Verified Allergy, Unknown, 05/13/20) PENICILLINS (Verified Allergy, Unknown, 05/13/20) PHENYTOIN (Verified Allergy, Unknown, 05/13/20) All Systems: reviewed and negative except above Subjective no events. multiple new complaints. cant walk due to severe pain. no fever or chills. no cough. +constipation. +headache. on o2 due to low sats Objective Last 24 Hour Vital Signs Date Time Temp Pulse Resp B/P (MAP) Pulse Ox O2 Delivery O2 Flow Rate FiO2 05/16/20 08:00 97.1 72 18 138/60 (86) 98 05/16/20 04:00 97.5 64 20 139/95 (110) 97 05/16/20 00:00 98.1 75 20 153/65 (94) 97 05/15/20 23:54 82 20 95 30 05/15/20 20:51 Nasal Cannula 1.0 05/15/20 20:00 98.0 65 19 115/67 (83) 98 05/15/20 16:08 98.8 78 18 124/59 (80) 90 05/15/20 11:52 98.4 70 20 131/53 (79) 92 Intake and Output 05/15/20 05/16/20 19:00 07:00 Intake Total 500 ml Output Total 1700 ml 2000 ml Balance -1200 ml -2000 ml Intake Oral 500 ml Output Urine Total 1700 ml 2000 ml # Voids 2 Height (Feet): 5 Height (Inches): 3.00 Weight (Pounds): 382 Objective General Appearance: WD/WN, alert, morbidly obese EENT: PERRL/EOMI, normal ENT inspection Neck: non-tender, normal alignment, supple Cardiovascular: normal peripheral pulses, normal rate Respiratory/Chest: chest wall non-tender, lungs clear, normal breath sounds Abdomen: normal bowel sounds, non tender, soft, no organomegaly Edema: 2+ Leg (L), 2+ Leg (R), 2+ Pedal (L), 2+ Pedal (R) Edema: moderate edema 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
[2020-05-16] MEDS: Levemir Flexpen SUBQ SCH (09:00)
[2020-05-16] MEDS: Lactulose 20gm/30ml UDC ORAL SCH ×3 (09:50→17:17)
[2020-05-16] MEDS: Aspirin EC 81mg tab ORAL SCH (09:51)
[2020-05-16] MEDS: Bumetanide 1mg tab ORAL SCH ×2 (09:51→17:17)
[2020-05-16] MEDS: Vitamin D 400 INTLU TAB ORAL SCH (09:51)
[2020-05-16] MEDS: Spironolactone 50mg tab ORAL SCH (09:52)
[2020-05-16] MEDS: Enoxaparin 60mg Inj SUBQ SCH (09:54)
--- NOTE | 2020-05-16 11:47 | Diagnostic Imaging Report ---
EXAM: US Duplex Bilateral Lower Extremities Veins CLINICAL HISTORY: DVT TECHNIQUE: Real-time duplex ultrasound scan of the bilateral lower extremity veins integrating B-mode two-dimensional vascular structure, Doppler spectral analysis, color flow Doppler imaging and compression. COMPARISON: No relevant prior studies available. FINDINGS: Limitations: Left common femoral vein and SFV are no well seen due to large habitus/obesity and remain incompletely evaluated. Right deep veins: Unremarkable. No DVT in the right common femoral, femoral, proximal deep femoral or popliteal veins. The veins demonstrate normal color flow, are normally compressible, with normal phasic flow and/or augmentation response. Right superficial veins: Unremarkable. Left deep veins: Poor visualization of the common femoral vein and SFV. No DVT in the left popliteal veins and visualized calf veins. Left superficial veins: Unremarkable. Soft tissues: No popliteal cyst. IMPRESSION: 1. No evidence of DVT in the visualized venous segments of bilateral lower extremities. 2. Left common femoral vein and SFV were not well seen due to large body habitus, and remain incompletely evaluated.
--- NOTE | 2020-05-16 11:48 | Diagnostic Imaging Report ---
EXAM: XR Chest, 1 View CLINICAL HISTORY: Shortness of breath TECHNIQUE: Frontal view of the chest. COMPARISON: No relevant prior studies available. FINDINGS: Lungs: Pulmonary vascular congestion. The lungs are otherwise clear without focal consolidation. Pleural space: Unremarkable. The costophrenic angles are sharp. No visible pneumothorax. Heart: Borderline cardiomegaly. Mediastinum: Unremarkable. Bones/joints: Unremarkable. IMPRESSION: 1. Pulmonary vascular congestion. 2. Borderline cardiomegaly.
[2020-05-16] MEDS ORDERED: NovoLOG Insulin Flexpen SUBQ SCH (11:50)
[2020-05-16 12:00] VITALS: BP 141/75
[2020-05-16 16:00] VITALS: BP 136/87
[2020-05-16 20:00] VITALS: BP 131/76
[2020-05-17] VITALS: BP 129/61
[2020-05-17 03:39] VITALS: BP 131/62
[2020-05-17] MEDS: NovoLOG Insulin Flexpen SUBQ SCH ×7 (07:15→21:08)
[2020-05-17 08:00] VITALS: BP 151/79
[2020-05-17] MEDS: traMADol 50mg tab ORAL PRN (08:12)
--- NOTE | 2020-05-17 08:32 | General Progress Note ---
Assessment/Plan Problem List: (1) Morbid obesity ICD Codes: E66.01 - Morbid (severe) obesity due to excess calories SNOMED: 482528897 (2) Hyperglycemia ICD Codes: R73.9 - Hyperglycemia, unspecified SNOMED: 67535781 (3) At high risk for falls ICD Codes: Z91.81 - History of falling SNOMED: 843135151568023137 (4) Ankle sprain ICD Codes: S93.409A - Sprain of unspecified ligament of unspecified ankle, initial encounter SNOMED: 68312801 Status: stable, not improved Assessment/Plan: IV lasix consider zaroxlyn if no responsive to iv lasix check labs monitor cxr echo pain rx pt/ot Subjective ROS Limited/Unobtainable: No Constitutional: Reports: malaise, weakness HEENT: Reports: no symptoms Cardiovascular: Reports: no symptoms Respiratory: Reports: shortness of breath, SOB at rest Gastrointestinal/Abdominal: Reports: no symptoms Genitourinary: Reports: no symptoms Neurologic/Psychiatric: Reports: no symptoms Endocrine: Reports: no symptoms Hematologic/Lymphatic: Reports: no symptoms Allergies: Coded Allergies: CIPROFLOXACIN (Verified Allergy, Unknown, 05/13/20) LATEX (Verified Allergy, Unknown, 05/13/20) PENICILLINS (Verified Allergy, Unknown, 05/13/20) PHENYTOIN (Verified Allergy, Unknown, 05/13/20) All Systems: reviewed and negative except above Subjective no events. stable on o2. cxr with chf. venous duplex neg- poor qual study. still unable to ambulate due to knee pain. unable to fit into MRI due to wt. Objective Last 24 Hour Vital Signs Date Time Temp Pulse Resp B/P (MAP) Pulse Ox O2 Delivery O2 Flow Rate FiO2 05/17/20 03:39 98.2 76 20 131/62 (85) 95 05/17/20 03:24 79 15 95 30 05/17/20 00:20 88 18 96 30 05/17/20 00:00 97.9 83 18 129/61 (83) 95 05/16/20 20:00 98.1 76 18 131/76 (94) 96 05/16/20 18:00 Nasal Cannula 2.0 05/16/20 16:00 97.8 81 19 136/87 (103) 97 05/16/20 12:00 97.9 80 21 141/75 (97) 97 05/16/20 09:52 72 138/60 05/16/20 09:00 Nasal Cannula 2.0 Intake and Output 05/16/20 05/17/20 19:00 07:00 Intake Total 1260 ml 480 ml Output Total 1700 ml 1000 ml Balance -440 ml -520 ml Intake Oral 1260 ml 480 ml Output Urine Total 1700 ml 1000 ml # Voids 4 1 # Bowel Movements 2 4 Height (Feet): 5 Height (Inches): 3.00 Weight (Pounds): 382 Objective General Appearance: WD/WN, alert, morbidly obese EENT: PERRL/EOMI, normal ENT inspection Neck: non-tender, normal alignment, supple Cardiovascular: normal peripheral pulses, normal rate Respiratory/Chest: chest wall non-tender, lungs clear, normal breath sounds Abdomen: normal bowel sounds, non tender, soft, no organomegaly Edema: 2+ Leg (L), 2+ Leg (R), 2+ Pedal (L), 2+ Pedal (R) Edema: moderate edema 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
[2020-05-17] MEDS: Lactulose 20gm/30ml UDC ORAL SCH ×3 (09:00→17:38)
[2020-05-17] MEDS ORDERED: Gabapentin 300 MG/6 ML Soln GT SCH (09:00)
[2020-05-17] MEDS: Enoxaparin 60mg Inj SUBQ SCH (10:24)
[2020-05-17] MEDS: Levemir Flexpen SUBQ SCH (10:26)
[2020-05-17] MEDS: Aspirin EC 81mg tab ORAL SCH (10:28)
[2020-05-17] MEDS: Vitamin D 400 INTLU TAB ORAL SCH (10:29)
[2020-05-17] MEDS: Bumetanide 1mg tab ORAL SCH ×2 (10:29→17:37)
[2020-05-17] MEDS: Spironolactone 50mg tab ORAL SCH (10:29)
[2020-05-17] MEDS ORDERED: Gabapentin 300 MG/6 ML Soln ORAL SCH (10:30)
[2020-05-17 11:30] LABS: ANION GAP 5 mmol/L (5-15); BLOOD UREA NITROGEN 8 mg/dL (7-18); CALCIUM 8.6 MG/DL (8.5-10.1); CARBON DIOXIDE 35 MMOL/L (21-32); CHLORIDE 95 MMOL/L (98-107); CREATININE 0.9 MG/DL (0.55-1.30); POTASSIUM 3.1 MMOL/L (3.5-5.1); SODIUM 135 MMOL/L (136-145)
[2020-05-17 11:54] LABS: APPEARANCE,URINE SLIGHTLY CLOUDY; BILIRUBIN, URINE NEGATIVE (NEGATIVE); COLOR,URINE PALE YELLOW; GLUCOSE, URINE (UA) 4+ (NEGATIVE); KETONES,URINE NEGATIVE (NEGATIVE); LEUKOCYTE ESTERASE ,URINE 3+ (NEGATIVE); NITRITE,URINE NEGATIVE (NEGATIVE); PH,URINE 8 (4.5-8.0); PROTEIN,URINE NEGATIVE (NEGATIVE); UROBILINOGEN,URINE NORMAL MG/DL (0.0-1.0)
[2020-05-17 12:00] VITALS: BP 142/70
--- NOTE | 2020-05-17 12:57 | General Progress Note ---
Assessment/Plan Problem List: (1) Diabetes mellitus out of control ICD Codes: E11.65 - Type 2 diabetes mellitus with hyperglycemia SNOMED: 25480190, 260904003 (2) Hyperglycemia ICD Codes: R73.9 - Hyperglycemia, unspecified SNOMED: 78522158 (3) Ankle sprain ICD Codes: S93.409A - Sprain of unspecified ligament of unspecified ankle, initial encounter SNOMED: 26830660 (4) Morbid obesity ICD Codes: E66.01 - Morbid (severe) obesity due to excess calories SNOMED: 763092453 (5) At high risk for falls ICD Codes: Z91.81 - History of falling SNOMED: 143219663165066746 Status: stable, not improved Assessment/Plan: increase Levemir to 90 units qam increase Novolog to 30 units ac tid continue Novolog sliding scale ac / hs continue Levothyroxine 200 mcg daily Subjective Allergies: Coded Allergies: CIPROFLOXACIN (Verified Allergy, Unknown, 05/13/20) LATEX (Verified Allergy, Unknown, 05/13/20) PENICILLINS (Verified Allergy, Unknown, 05/13/20) PHENYTOIN (Verified Allergy, Unknown, 05/13/20) All Systems: reviewed and negative except above Subjective events noted glucose values are still elevated TSH is mildly elevated Item Value Date Time Bedside Blood Glucose 216 mg/dl H 05/17/20 1143 Bedside Blood Glucose 211 mg/dl H 05/17/20 1026 Bedside Blood Glucose 211 mg/dl H 05/17/20 0546 Bedside Blood Glucose 176 mg/dl H 05/16/20 2108 Bedside Blood Glucose 191 mg/dl H 05/16/20 1720 Objective Last 24 Hour Vital Signs Date Time Temp Pulse Resp B/P (MAP) Pulse Ox O2 Delivery O2 Flow Rate FiO2 05/17/20 12:00 97.7 69 19 142/70 (94) 98 05/17/20 10:28 68 151/79 05/17/20 08:00 97.1 68 20 151/79 (103) 98 05/17/20 03:39 98.2 76 20 131/62 (85) 95 05/17/20 03:24 79 15 95 30 05/17/20 00:20 88 18 96 30 05/17/20 00:00 97.9 83 18 129/61 (83) 95 05/16/20 20:00 98.1 76 18 131/76 (94) 96 05/16/20 18:00 Nasal Cannula 2.0 05/16/20 16:00 97.8 81 19 136/87 (103) 97 Intake and Output 05/16/20 05/17/20 19:00 07:00 Intake Total 1260 ml 480 ml Output Total 1700 ml 1000 ml Balance -440 ml -520 ml Intake Oral 1260 ml 480 ml Output Urine Total 1700 ml 1000 ml # Voids 4 1 # Bowel Movements 2 4 Laboratory Tests 05/17/20 10:30: Sodium Level 135L, Potassium Level 3.1L, Chloride Level 95L, Carbon Dioxide Level 35H, Anion Gap 5, Blood Urea Nitrogen 8, Creatinine 0.9, Estimat Glomerular Filtration Rate > 60, Glucose Level 199H, Calcium Level 8.6, Magnesium Level 2.0 05/17/20 11:35: Urine Color Pale yellow, Urine Appearance Slightly cloudy, Urine pH 8, Urine Specific [place] 1.010, Urine Protein Negative, Urine Glucose (UA) 4+H, Urine Ketones Negative, Urine Blood 1+H, Urine Nitrite Negative, Urine Bilirubin Negative, Urine Urobilinogen Normal, Urine Leukocyte Esterase 3+H, Urine RBC 0-2 , Urine WBC 15-20H, Urine Squamous Epithelial Cells Few, Urine Bacteria ModerateH Height (Feet): 5 Height (Inches): 3.00 Weight (Pounds): 382 General Appearance: no apparent distress Neck: normal alignment Cardiovascular: normal rate Respiratory/Chest: lungs clear Abdomen: normal bowel sounds Objective Current Medications Medications (Trade) Dose Ordered Sig/Avelino Route PRN Reason Start Time Stop Time Status Last Admin Dose Admin Acetaminophen (Tylenol) 650 mg Q4H PRN ORAL Mild Pain (Pain Scale 1-3) 05/13/20 19:45 06/12/20 19:44 05/15/20 08:29 Amlodipine Besylate (Norvasc) 10 mg DAILY ORAL 05/16/20 09:00 06/13/20 08:59 05/17/20 10:28 Aspirin (Ecotrin) 81 mg DAILY ORAL 05/14/20 09:00 06/28/20 08:59 05/17/20 10:28 Bisacodyl (Dulcolax) 5 mg DAILYPRN PRN ORAL Constipation 05/15/20 17:00 08/13/20 16:59 05/15/20 17:08 Bumetanide (Bumex) 4 mg BID ORAL 05/14/20 09:00 06/13/20 08:59 05/17/20 10:29 Dextrose (Dextrose 50%) 25 ml Q30M PRN IV Hypoglycemia 05/14/20 18:33 08/12/20 18:32 Dextrose (Dextrose 50%) 50 ml Q30M PRN IV Hypoglycemia 05/14/20 18:33 08/12/20 18:32 Enoxaparin Sodium (Lovenox) 60 mg DAILY SUBQ 05/13/20 21:00 08/11/20 20:59 05/17/20 10:24 Gabapentin (Neurontin) 600 mg THREE TIMES A DAY ORAL 05/17/20 11:00 06/16/20 10:59 05/17/20 11:02 Insulin Aspart (NovoLOG) BEFORE MEALS AND HS SUBQ 05/14/20 21:00 08/12/20 20:59 05/17/20 11:42 Insulin Aspart (NovoLOG) 28 units NOVOTIAC SUBQ 05/16/20 16:50 08/12/20 19:29 05/17/20 11:43 Insulin Detemir (Levemir) 80 units DAILY SUBQ 05/16/20 09:00 08/12/20 19:59 05/17/20 10:26 Lactulose (Cephulac) 30 gm THREE TIMES A DAY ORAL 05/16/20 09:00 06/15/20 08:59 05/16/20 17:17 Levothyroxine Sodium (Synthroid) 200 mcg DAILY@0630 ORAL 05/15/20 06:30 06/14/20 06:29 05/17/20 06:25 Magnesium Hydroxide (Mom) 30 ml Q8H PRN ORAL Constipation 05/15/20 23:00 06/14/20 22:59 Ondansetron HCl (Zofran) 4 mg Q6H PRN IVP Nausea & Vomiting 05/13/20 19:45 06/12/20 19:44 05/16/20 15:51 Potassium Chloride (K-Dur) 20 meq DAILY ORAL 05/14/20 09:00 08/12/20 08:59 05/17/20 10:28 Spironolactone (Aldactone) 50 mg DAILY ORAL 05/14/20 09:00 06/13/20 08:59 05/17/20 10:29 Tramadol HCl (Ultram) 50 mg Q6H PRN ORAL Moderate Pain (Pain Scale 4-6) 05/13/20 19:45 05/20/20 19:44 05/17/20 08:12 Vitamin D (Vitamin D) 800 intlu DAILY ORAL 05/14/20 09:00 06/13/20 08:59 05/17/20 10:29 Stephen Nixon MD May 17, 2020 12:57
[2020-05-17 16:00] VITALS: BP 134/67
[2020-05-17] MEDS ORDERED: NovoLOG Insulin Flexpen SUBQ SCH (16:50)
[2020-05-17 20:00] VITALS: BP 119/79
[2020-05-18] VITALS: BP 144/63
[2020-05-18 04:00] VITALS: BP 127/63
[2020-05-18] MEDS: NovoLOG Insulin Flexpen SUBQ SCH ×7 (06:29→21:01)
--- NOTE | 2020-05-18 07:07 | General Progress Note ---
Assessment/Plan Problem List: (1) Diabetes mellitus out of control ICD Codes: E11.65 - Type 2 diabetes mellitus with hyperglycemia SNOMED: 24177810, 171351758 (2) Hyperglycemia ICD Codes: R73.9 - Hyperglycemia, unspecified SNOMED: 12341695 (3) Ankle sprain ICD Codes: S93.409A - Sprain of unspecified ligament of unspecified ankle, initial encounter SNOMED: 18701568 (4) Morbid obesity ICD Codes: E66.01 - Morbid (severe) obesity due to excess calories SNOMED: 297405530 (5) At high risk for falls ICD Codes: Z91.81 - History of falling SNOMED: 535041001465791960 Status: stable, not improved Assessment/Plan: increase Levemir to 120 units qam increase Novolog to 40 units ac tid continue Novolog sliding scale ac / hs continue Levothyroxine 200 mcg daily Subjective Allergies: Coded Allergies: CIPROFLOXACIN (Verified Allergy, Unknown, 05/13/20) LATEX (Verified Allergy, Unknown, 05/13/20) PENICILLINS (Verified Allergy, Unknown, 05/13/20) PHENYTOIN (Verified Allergy, Unknown, 05/13/20) All Systems: reviewed and negative except above Subjective events noted glucose values are still elevated TSH is mildly elevated Item Value Date Time Bedside Blood Glucose 269 mg/dl H 05/18/20 0630 Bedside Blood Glucose 233 mg/dl H 05/17/20 2108 Bedside Blood Glucose 222 mg/dl H 05/17/20 1744 Bedside Blood Glucose 216 mg/dl H 05/17/20 1143 Bedside Blood Glucose 211 mg/dl H 05/17/20 1026 Bedside Blood Glucose 211 mg/dl H 05/17/20 0546 Objective Last 24 Hour Vital Signs Date Time Temp Pulse Resp B/P (MAP) Pulse Ox O2 Delivery O2 Flow Rate FiO2 05/18/20 04:48 79 15 95 30 05/18/20 04:00 98.2 73 20 127/63 (84) 96 05/18/20 00:00 97.8 74 20 144/63 (90) 95 05/17/20 23:05 83 18 96 30 05/17/20 21:00 Bi-pap 05/17/20 20:00 97.5 79 22 119/79 (92) 94 05/17/20 16:00 98.6 77 21 134/67 (89) 98 05/17/20 12:00 97.7 69 19 142/70 (94) 98 05/17/20 10:28 68 151/79 05/17/20 09:00 Nasal Cannula 2.0 05/17/20 08:00 97.1 68 20 151/79 (103) 98 Intake and Output 05/17/20 05/18/20 19:00 07:00 Intake Total 1320 ml Output Total 1300 ml 1100 ml Balance 20 ml -1100 ml Intake Oral 1320 ml Output Urine Total 1300 ml 1100 ml Laboratory Tests 05/17/20 10:30: Sodium Level 135L, Potassium Level 3.1L, Chloride Level 95L, Carbon Dioxide Level 35H, Anion Gap 5, Blood Urea Nitrogen 8, Creatinine 0.9, Estimat Glomerular Filtration Rate > 60, Glucose Level 199H, Calcium Level 8.6, Magnesium Level 2.0 05/17/20 11:35: Urine Color Pale yellow, Urine Appearance Slightly cloudy, Urine pH 8, Urine Specific [place] 1.010, Urine Protein Negative, Urine Glucose (UA) 4+H, Urine Ketones Negative, Urine Blood 1+H, Urine Nitrite Negative, Urine Bilirubin Negative, Urine Urobilinogen Normal, Urine Leukocyte Esterase 3+H, Urine RBC 0-2 , Urine WBC 15-20H, Urine Squamous Epithelial Cells Few, Urine Bacteria ModerateH 05/18/20 05:05: Sodium Level [Pending], Potassium Level [Pending], Chloride Level [Pending], Carbon Dioxide Level [Pending], Blood Urea Nitrogen [Pending], Creatinine [ Pending], Estimat Glomerular Filtration Rate [Pending], Glucose Level [Pending] , Calcium Level [Pending] Height (Feet): 5 Height (Inches): 3.00 Weight (Pounds): 382 General Appearance: no apparent distress Neck: normal alignment Cardiovascular: normal rate Respiratory/Chest: lungs clear Abdomen: normal bowel sounds Pelvis: normal external exam Objective Current Medications Medications (Trade) Dose Ordered Sig/Avelino Route PRN Reason Start Time Stop Time Status Last Admin Dose Admin Acetaminophen (Tylenol) 650 mg Q4H PRN ORAL Mild Pain (Pain Scale 1-3) 05/13/20 19:45 06/12/20 19:44 05/15/20 08:29 Amlodipine Besylate (Norvasc) 10 mg DAILY ORAL 05/16/20 09:00 06/13/20 08:59 05/17/20 10:28 Aspirin (Ecotrin) 81 mg DAILY ORAL 05/14/20 09:00 06/28/20 08:59 05/17/20 10:28 Bisacodyl (Dulcolax) 5 mg DAILYPRN PRN ORAL Constipation 05/15/20 17:00 08/13/20 16:59 05/15/20 17:08 Bumetanide (Bumex) 4 mg BID ORAL 05/14/20 09:00 06/13/20 08:59 05/17/20 17:37 Dextrose (Dextrose 50%) 25 ml Q30M PRN IV Hypoglycemia 05/14/20 18:33 08/12/20 18:32 Dextrose (Dextrose 50%) 50 ml Q30M PRN IV Hypoglycemia 05/14/20 18:33 08/12/20 18:32 Enoxaparin Sodium (Lovenox) 60 mg DAILY SUBQ 05/13/20 21:00 08/11/20 20:59 05/17/20 10:24 Gabapentin (Neurontin) 600 mg THREE TIMES A DAY ORAL 05/17/20 11:00 06/16/20 10:59 05/17/20 17:40 Insulin Aspart (NovoLOG) BEFORE MEALS AND HS SUBQ 05/14/20 21:00 08/12/20 20:59 05/18/20 06:29 Insulin Aspart (NovoLOG) 30 units NOVOTIAC SUBQ 05/17/20 16:50 08/12/20 19:29 05/18/20 06:30 Insulin Detemir (Levemir) 90 units DAILY SUBQ 05/18/20 09:00 08/12/20 19:59 Lactulose (Cephulac) 30 gm THREE TIMES A DAY ORAL 05/16/20 09:00 06/15/20 08:59 05/16/20 17:17 Levothyroxine Sodium (Synthroid) 200 mcg DAILY@0630 ORAL 05/15/20 06:30 06/14/20 06:29 05/18/20 06:27 Magnesium Hydroxide (Mom) 30 ml Q8H PRN ORAL Constipation 05/15/20 23:00 06/14/20 22:59 Ondansetron HCl (Zofran) 4 mg Q6H PRN IVP Nausea & Vomiting 05/13/20 19:45 06/12/20 19:44 05/16/20 15:51 Potassium Chloride (K-Dur) 20 meq DAILY ORAL 05/14/20 09:00 08/12/20 08:59 05/17/20 10:28 Spironolactone (Aldactone) 50 mg DAILY ORAL 05/14/20 09:00 06/13/20 08:59 05/17/20 10:29 Tramadol HCl (Ultram) 50 mg Q6H PRN ORAL Moderate Pain (Pain Scale 4-6) 05/13/20 19:45 05/20/20 19:44 05/17/20 08:12 Vitamin D (Vitamin D) 800 intlu DAILY ORAL 05/14/20 09:00 06/13/20 08:59 05/17/20 10:29 Stephen Nixon MD May 18, 2020 07:07
[2020-05-18 07:29] LABS: ANION GAP 5 mmol/L (5-15); BLOOD UREA NITROGEN 13 mg/dL (7-18); CALCIUM 8.6 MG/DL (8.5-10.1); CARBON DIOXIDE 35 MMOL/L (21-32); CHLORIDE 96 MMOL/L (98-107); POTASSIUM 3.7 MMOL/L (3.5-5.1); SODIUM 136 MMOL/L (136-145)
[2020-05-18 08:00] VITALS: BP 120/98
[2020-05-18] MEDS: Bumetanide 1mg tab ORAL SCH ×2 (08:39→18:06)
[2020-05-18] MEDS: Lactulose 20gm/30ml UDC ORAL SCH ×5 (08:39→18:06)
[2020-05-18] MEDS: Aspirin EC 81mg tab ORAL SCH (08:40)
[2020-05-18] MEDS: Vitamin D 400 INTLU TAB ORAL SCH (08:40)
[2020-05-18] MEDS: Spironolactone 50mg tab ORAL SCH (08:41)
[2020-05-18] MEDS: Enoxaparin 60mg Inj SUBQ SCH (08:50)
[2020-05-18] MEDS ORDERED: Levemir Flexpen SUBQ SCH ×2 (09:00)
[2020-05-18 12:00] VITALS: BP 115/74
[2020-05-18 16:00] VITALS: BP 116/79
--- NOTE | 2020-05-18 16:23 | General Progress Note ---
Assessment/Plan Problem List: (1) Morbid obesity ICD Codes: E66.01 - Morbid (severe) obesity due to excess calories SNOMED: 192455747 (2) Hyperglycemia ICD Codes: R73.9 - Hyperglycemia, unspecified SNOMED: 43448761 (3) At high risk for falls ICD Codes: Z91.81 - History of falling SNOMED: 283902219994534404 (4) Ankle sprain ICD Codes: S93.409A - Sprain of unspecified ligament of unspecified ankle, initial encounter SNOMED: 26213138 Status: stable, not improved Assessment/Plan: IV lasix consider zaroxlyn if no responsive to iv lasix check labs echo reviewed- poor study pain rx pt/ot repeat cxr bariatric walker ordered dc tomorrow Subjective ROS Limited/Unobtainable: No Constitutional: Reports: weakness HEENT: Reports: no symptoms Cardiovascular: Reports: edema Respiratory: Reports: SOB at rest Gastrointestinal/Abdominal: Reports: no symptoms Genitourinary: Reports: no symptoms Neurologic/Psychiatric: Reports: no symptoms Endocrine: Reports: no symptoms Hematologic/Lymphatic: Reports: anemia Allergies: Coded Allergies: CIPROFLOXACIN (Verified Allergy, Unknown, 05/13/20) LATEX (Verified Allergy, Unknown, 05/13/20) PENICILLINS (Verified Allergy, Unknown, 05/13/20) PHENYTOIN (Verified Allergy, Unknown, 05/13/20) All Systems: reviewed and negative except above Subjective no events. stable on o2. decreased sob. venous duplex neg- poor qual study. able to stand with pain. cannot walk still Objective Last 24 Hour Vital Signs Date Time Temp Pulse Resp B/P (MAP) Pulse Ox O2 Delivery O2 Flow Rate FiO2 05/18/20 16:00 98.4 86 19 116/79 (91) 98 05/18/20 12:00 98.2 66 19 115/74 (88) 95 05/18/20 09:00 Bi-pap 05/18/20 08:40 79 120/78 05/18/20 08:00 97.9 81 19 120/98 (105) 95 05/18/20 04:48 79 15 95 30 05/18/20 04:00 98.2 73 20 127/63 (84) 96 05/18/20 00:00 97.8 74 20 144/63 (90) 95 6/21/20 23:05 83 18 96 30 05/17/20 21:00 Bi-pap 05/17/20 20:00 97.5 79 22 119/79 (92) 94 Intake and Output 05/17/20 05/18/20 19:00 07:00 Intake Total 1320 ml Output Total 1300 ml 1100 ml Balance 20 ml -1100 ml Intake Oral 1320 ml Output Urine Total 1300 ml 1100 ml Laboratory Tests 05/18/20 05:05: Sodium Level 136, Potassium Level 3.7, Chloride Level 96L, Carbon Dioxide Level 35H, Anion Gap 5, Blood Urea Nitrogen 13, Creatinine 1.0, Estimat Glomerular Filtration Rate 57.1, Glucose Level 271H, Calcium Level 8.6 Height (Feet): 5 Height (Inches): 3.00 Weight (Pounds): 382 Objective General Appearance: WD/WN, alert, morbidly obese EENT: PERRL/EOMI, normal ENT inspection Neck: non-tender, normal alignment, supple Cardiovascular: normal peripheral pulses, normal rate Respiratory/Chest: chest wall non-tender, lungs clear, normal breath sounds Abdomen: normal bowel sounds, non tender, soft, no organomegaly Edema: 2+ Leg (L), 2+ Leg (R), 2+ Pedal (L), 2+ Pedal (R) Edema: moderate edema 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
--- NOTE | 2020-05-18 17:22 | Diagnostic Imaging Report ---
Procedure: XRAY Chest 1v Reason for study: Reason For Exam: SOB Comparison films: 05/16/2020. FINDINGS: Radiograph is underpenetrated. Vascular congestion unchanged. The lung howell are clear bilaterally. There is cardiomegaly. CP angles are sharp. The bony thorax appear unremarkable. IMPRESSION: Vascular congestion unchanged.
[2020-05-18 20:00] VITALS: BP 158/88
[2020-05-19] VITALS: BP 132/70
[2020-05-19 04:00] VITALS: BP 122/59
[2020-05-19 06:20] LABS: ANION GAP 4 mmol/L (5-15); BLOOD UREA NITROGEN 18 mg/dL (7-18); CALCIUM 8.9 MG/DL (8.5-10.1); CARBON DIOXIDE 36 MMOL/L (21-32); CHLORIDE 95 MMOL/L (98-107); CREATININE 1.1 MG/DL (0.55-1.30); POTASSIUM 3.7 MMOL/L (3.5-5.1); SODIUM 135 MMOL/L (136-145)
[2020-05-19] MEDS: NovoLOG Insulin Flexpen SUBQ SCH ×7 (06:36→21:44)
--- NOTE | 2020-05-19 06:52 | General Progress Note ---
Assessment/Plan Problem List: (1) Diabetes mellitus out of control ICD Codes: E11.65 - Type 2 diabetes mellitus with hyperglycemia SNOMED: 92575943, 223181774 (2) Hyperglycemia ICD Codes: R73.9 - Hyperglycemia, unspecified SNOMED: 17736747 (3) Ankle sprain ICD Codes: S93.409A - Sprain of unspecified ligament of unspecified ankle, initial encounter SNOMED: 55031458 (4) Morbid obesity ICD Codes: E66.01 - Morbid (severe) obesity due to excess calories SNOMED: 680243086 (5) At high risk for falls ICD Codes: Z91.81 - History of falling SNOMED: 941803592566148272 Status: stable, not improved Assessment/Plan: increase Levemir to 150 units qam increase Novolog to 50 units ac tid continue Novolog sliding scale ac / hs continue Levothyroxine 200 mcg daily Subjective Allergies: Coded Allergies: CIPROFLOXACIN (Verified Allergy, Unknown, 05/13/20) LATEX (Verified Allergy, Unknown, 05/13/20) PENICILLINS (Verified Allergy, Unknown, 05/13/20) PHENYTOIN (Verified Allergy, Unknown, 05/13/20) All Systems: reviewed and negative except above Subjective events noted glucose values are still on higher side despite aggressive insulin dose adjustments Item Value Date Time Bedside Blood Glucose 291 mg/dl H 05/19/20 0636 Bedside Blood Glucose 296 mg/dl H 05/18/20 2101 Bedside Blood Glucose 315 mg/dl H 05/18/20 1804 Bedside Blood Glucose 309 mg/dl H 05/18/20 1150 Bedside Blood Glucose 269 mg/dl H 05/18/20 0853 Bedside Blood Glucose 269 mg/dl H 05/18/20 0630 Objective Last 24 Hour Vital Signs Date Time Temp Pulse Resp B/P (MAP) Pulse Ox O2 Delivery O2 Flow Rate FiO2 05/19/20 04:00 97.9 66 19 122/59 (80) 97 05/19/20 03:38 70 18 98 30 05/19/20 01:18 71 20 98 Bi-Pap 30 05/19/20 01:15 71 20 98 30 05/19/20 00:00 97.4 71 20 132/70 (90) 92 05/18/20 21:00 Bi-pap 05/18/20 20:00 97.7 78 18 158/88 (111) 92 05/18/20 16:00 98.4 86 19 116/79 (91) 98 05/18/20 12:00 98.2 66 19 115/74 (88) 95 05/18/20 09:00 Bi-pap 05/18/20 08:40 79 120/78 05/18/20 08:00 97.9 81 19 120/98 (105) 95 Intake and Output 05/18/20 05/19/20 19:00 07:00 Intake Total 1000 ml 1200 ml Output Total 500 ml 2000 ml Balance 500 ml -800 ml Intake Oral 1000 ml 1200 ml Output Urine Total 500 ml 2000 ml # Voids 4 # Bowel Movements 1 Laboratory Tests 05/19/20 04:55: Sodium Level 135L, Potassium Level 3.7, Chloride Level 95L, Carbon Dioxide Level 36H, Anion Gap 4L, Blood Urea Nitrogen 18, Creatinine 1.1, Estimat Glomerular Filtration Rate 51.2, Glucose Level 281H, Calcium Level 8.9, Magnesium Level 1.8 Height (Feet): 5 Height (Inches): 3.00 Weight (Pounds): 382 General Appearance: no apparent distress Neck: normal alignment Cardiovascular: normal rate Respiratory/Chest: lungs clear Abdomen: normal bowel sounds Pelvis: normal external exam Objective Current Medications Medications (Trade) Dose Ordered Sig/Avelino Route PRN Reason Start Time Stop Time Status Last Admin Dose Admin Acetaminophen (Tylenol) 650 mg Q4H PRN ORAL Mild Pain (Pain Scale 1-3) 05/13/20 19:45 06/12/20 19:44 05/15/20 08:29 Amlodipine Besylate (Norvasc) 10 mg DAILY ORAL 05/16/20 09:00 06/13/20 08:59 05/18/20 08:40 Aspirin (Ecotrin) 81 mg DAILY ORAL 05/14/20 09:00 06/28/20 08:59 05/18/20 08:40 Bisacodyl (Dulcolax) 5 mg DAILYPRN PRN ORAL Constipation 05/15/20 17:00 08/13/20 16:59 05/15/20 17:08 Bumetanide (Bumex) 4 mg BID ORAL 05/14/20 09:00 06/13/20 08:59 05/18/20 18:06 Dextrose (Dextrose 50%) 25 ml Q30M PRN IV Hypoglycemia 05/14/20 18:33 08/12/20 18:32 Dextrose (Dextrose 50%) 50 ml Q30M PRN IV Hypoglycemia 05/14/20 18:33 08/12/20 18:32 Enoxaparin Sodium (Lovenox) 60 mg DAILY SUBQ 05/13/20 21:00 08/11/20 20:59 05/18/20 08:50 Gabapentin (Neurontin) 600 mg THREE TIMES A DAY ORAL 05/17/20 11:00 06/16/20 10:59 05/18/20 18:06 Insulin Aspart (NovoLOG) BEFORE MEALS AND HS SUBQ 05/14/20 21:00 08/12/20 20:59 05/19/20 06:36 Insulin Aspart (NovoLOG) 40 units NOVOTIAC SUBQ 05/18/20 11:50 08/12/20 19:29 05/19/20 06:36 Insulin Detemir (Levemir) 120 units DAILY SUBQ 05/18/20 09:00 08/12/20 19:59 05/18/20 08:53 Lactulose (Cephulac) 30 gm THREE TIMES A DAY ORAL 05/16/20 09:00 06/15/20 08:59 05/18/20 18:06 Levothyroxine Sodium (Synthroid) 200 mcg DAILY@0630 ORAL 05/15/20 06:30 06/14/20 06:29 05/19/20 06:10 Magnesium Hydroxide (Mom) 30 ml Q8H PRN ORAL Constipation 05/15/20 23:00 06/14/20 22:59 Ondansetron HCl (Zofran) 4 mg Q6H PRN IVP Nausea & Vomiting 05/13/20 19:45 06/12/20 19:44 05/16/20 15:51 Potassium Chloride (K-Dur) 20 meq DAILY ORAL 05/14/20 09:00 08/12/20 08:59 05/18/20 08:40 Spironolactone (Aldactone) 50 mg DAILY ORAL 05/14/20 09:00 06/13/20 08:59 05/18/20 08:41 Tramadol HCl (Ultram) 50 mg Q6H PRN ORAL Moderate Pain (Pain Scale 4-6) 05/13/20 19:45 05/20/20 19:44 05/17/20 08:12 Vitamin D (Vitamin D) 800 intlu DAILY ORAL 05/14/20 09:00 06/13/20 08:59 05/18/20 08:40 Stephen Nixon MD May 19, 2020 06:52
[2020-05-19 08:00] VITALS: BP 127/65
[2020-05-19] MEDS ORDERED: Pseudoephedrine 30mg tab ORAL PRN (08:15)
[2020-05-19] MEDS: Vitamin D 400 INTLU TAB ORAL SCH (09:19)
[2020-05-19] MEDS: Spironolactone 50mg tab ORAL SCH (09:19)
[2020-05-19] MEDS: Aspirin EC 81mg tab ORAL SCH (09:19)
[2020-05-19] MEDS: Fluconazole 100mg tab ORAL SCH (09:19)
[2020-05-19] MEDS: Bumetanide 1mg tab ORAL SCH ×2 (09:19→17:57)
[2020-05-19] MEDS: Lactulose 20gm/30ml UDC ORAL SCH ×3 (09:20→17:57)
[2020-05-19] MEDS: Enoxaparin 60mg Inj SUBQ SCH (09:21)
[2020-05-19] MEDS ORDERED: Levemir Flexpen SUBQ SCH (10:00)
[2020-05-19 12:00] VITALS: BP 119/79
[2020-05-19 16:00] VITALS: BP 124/74
[2020-05-19 20:00] VITALS: BP 132/75
--- NOTE | 2020-05-19 22:00 | Discharge Summary ---
DATE OF ADMISSION: 05/13/2020 DATE OF DISCHARGE: 05/19/2020 ADMISSION DIAGNOSES: 1. Mechanical fall. 2. Severe knee pain. 3. Morbid obesity. 4. Congestive heart failure. 5. Hypertension. 6. Diabetes. DISCHARGE DIAGNOSES: 1. Mechanical fall. 2. Severe knee pain. 3. Morbid obesity. 4. Congestive heart failure. 5. Hypertension. 6. Diabetes. HOSPITAL COURSE: The patient was admitted after a fall. She could not ambulate, had severe pain in both knees. A CT scan of the hip showed no evidence of any fracture. CT scan of the knees all showed no evidence of a fracture. MRI was unable to be obtained because the patient was too heavy for the MRI scanner. She received physical therapy, was able to ambulate a few feet. She was offered a retirement facility or acute rehabilitation, but she refused. She will be discharged home. She ill follow up with her regular doctor. She had mild CHF exacerbation treated with IV Lasix. DISCHARGE MEDICATIONS: Please see discharge medication list for discharge medications. DIET: Cardiac diabetic diet. ACTIVITY: Ad-ousmane. Patrick Johnston M.D. DR: Jw JOB#: [id number] CC:
[2020-05-20] VITALS: BP 117/62
[2020-05-20 04:00] VITALS: BP 124/74
[2020-05-20] MEDS: NovoLOG Insulin Flexpen SUBQ SCH ×6 (05:51→16:55)
--- NOTE | 2020-05-20 06:49 | General Progress Note ---
Assessment/Plan Problem List: (1) Diabetes mellitus out of control ICD Codes: E11.65 - Type 2 diabetes mellitus with hyperglycemia SNOMED: 77412281, 496496795 (2) Hyperglycemia ICD Codes: R73.9 - Hyperglycemia, unspecified SNOMED: 71329853 (3) Ankle sprain ICD Codes: S93.409A - Sprain of unspecified ligament of unspecified ankle, initial encounter SNOMED: 23551661 (4) Morbid obesity ICD Codes: E66.01 - Morbid (severe) obesity due to excess calories SNOMED: 787192531 (5) At high risk for falls ICD Codes: Z91.81 - History of falling SNOMED: 308696010088098952 Status: stable, not improved Assessment/Plan: increase Levemir to 180 units qam increase Novolog to 60 units ac tid continue Novolog sliding scale ac / hs continue Levothyroxine 200 mcg daily Subjective Allergies: Coded Allergies: CIPROFLOXACIN (Verified Allergy, Unknown, 05/13/20) LATEX (Verified Allergy, Unknown, 05/13/20) PENICILLINS (Verified Allergy, Unknown, 05/13/20) PHENYTOIN (Verified Allergy, Unknown, 05/13/20) All Systems: reviewed and negative except above Subjective events noted glucose values are still on higher side despite aggressive insulin dose adjustments Item Value Date Time Bedside Blood Glucose 276 mg/dl H 05/20/20 0552 Bedside Blood Glucose 142 mg/dl H 05/19/20 2144 Bedside Blood Glucose 202 mg/dl H 05/19/20 1705 Bedside Blood Glucose 320 mg/dl H 05/19/20 1200 Bedside Blood Glucose 301 mg/dl H 05/19/20 1016 Bedside Blood Glucose 291 mg/dl H 05/19/20 0636 Objective Last 24 Hour Vital Signs Date Time Temp Pulse Resp B/P (MAP) Pulse Ox O2 Delivery O2 Flow Rate FiO2 05/20/20 04:00 98.0 65 19 124/74 (91) 97 05/20/20 02:42 69 20 98 30 05/20/20 00:00 98.4 80 19 117/62 (80) 97 05/19/20 21:00 Room Air 05/19/20 20:00 98.3 80 20 132/75 (94) 96 05/19/20 16:00 98.0 65 20 124/74 (91) 97 05/19/20 12:00 98.4 69 18 119/79 (92) 97 05/19/20 09:20 68 127/65 05/19/20 09:00 Room Air 05/19/20 08:00 97.7 68 18 127/65 (85) 97 Intake and Output 05/19/20 05/20/20 19:00 07:00 Intake Total 1400 ml 450 ml Balance 1400 ml 450 ml Intake Oral 1400 ml 450 ml # Voids 3 4 Height (Feet): 5 Height (Inches): 3.00 Weight (Pounds): 381 General Appearance: no apparent distress Neck: normal alignment Cardiovascular: normal rate Respiratory/Chest: lungs clear Abdomen: normal bowel sounds Pelvis: normal external exam Objective Current Medications Medications (Trade) Dose Ordered Sig/Avelino Route PRN Reason Start Time Stop Time Status Last Admin Dose Admin Acetaminophen (Tylenol) 650 mg Q4H PRN ORAL Mild Pain (Pain Scale 1-3) 05/13/20 19:45 06/12/20 19:44 05/15/20 08:29 Amlodipine Besylate (Norvasc) 10 mg DAILY ORAL 05/16/20 09:00 06/13/20 08:59 05/19/20 09:20 Aspirin (Ecotrin) 81 mg DAILY ORAL 05/14/20 09:00 06/28/20 08:59 05/19/20 09:19 Bisacodyl (Dulcolax) 5 mg DAILYPRN PRN ORAL Constipation 05/15/20 17:00 08/13/20 16:59 05/15/20 17:08 Bumetanide (Bumex) 4 mg BID ORAL 05/14/20 09:00 06/13/20 08:59 05/19/20 17:57 Dextrose (Dextrose 50%) 25 ml Q30M PRN IV Hypoglycemia 05/14/20 18:33 08/12/20 18:32 Dextrose (Dextrose 50%) 50 ml Q30M PRN IV Hypoglycemia 05/14/20 18:33 08/12/20 18:32 Enoxaparin Sodium (Lovenox) 60 mg DAILY SUBQ 05/13/20 21:00 08/11/20 20:59 05/19/20 09:21 Fluconazole (Diflucan) 200 mg DAILY ORAL 05/19/20 09:00 6/30/20 08:59 05/19/20 09:19 Gabapentin (Neurontin) 600 mg THREE TIMES A DAY ORAL 05/17/20 11:00 06/16/20 10:59 05/19/20 17:56 Insulin Aspart (NovoLOG) BEFORE MEALS AND HS SUBQ 05/14/20 21:00 08/12/20 20:59 05/20/20 05:51 Insulin Aspart (NovoLOG) 50 units NOVOTIAC SUBQ 05/19/20 11:50 08/12/20 19:29 05/20/20 05:52 Insulin Detemir (Levemir) 150 units DAILY SUBQ 05/19/20 10:00 08/12/20 09:59 05/19/20 10:07 Lactulose (Cephulac) 30 gm THREE TIMES A DAY ORAL 05/16/20 09:00 06/15/20 08:59 05/19/20 17:57 Levothyroxine Sodium (Synthroid) 200 mcg DAILY@0630 ORAL 05/15/20 06:30 06/14/20 06:29 05/20/20 05:48 Magnesium Hydroxide (Mom) 30 ml Q8H PRN ORAL Constipation 05/15/20 23:00 06/14/20 22:59 05/19/20 15:49 Ondansetron HCl (Zofran) 4 mg Q6H PRN IVP Nausea & Vomiting 05/13/20 19:45 06/12/20 19:44 05/16/20 15:51 Potassium Chloride (K-Dur) 20 meq DAILY ORAL 05/14/20 09:00 08/12/20 08:59 05/19/20 09:20 Pseudoephedrine HCl (Sudafed) 30 mg Q6H PRN ORAL For Headache 05/19/20 08:15 08/17/20 08:14 Spironolactone (Aldactone) 50 mg DAILY ORAL 05/14/20 09:00 06/13/20 08:59 05/19/20 09:19 Tramadol HCl (Ultram) 50 mg Q6H PRN ORAL Moderate Pain (Pain Scale 4-6) 05/13/20 19:45 05/20/20 19:44 05/17/20 08:12 Vitamin D (Vitamin D) 800 intlu DAILY ORAL 05/14/20 09:00 06/13/20 08:59 05/19/20 09:19 Stephen Nixon MD May 20, 2020 06:49
[2020-05-20 08:00] VITALS: BP 131/66
[2020-05-20] MEDS ORDERED: Levemir Flexpen SUBQ SCH (09:00)
--- NOTE | 2020-05-20 09:46 | General Progress Note ---
Assessment/Plan Problem List: (1) Morbid obesity ICD Codes: E66.01 - Morbid (severe) obesity due to excess calories SNOMED: 884033382 (2) Hyperglycemia ICD Codes: R73.9 - Hyperglycemia, unspecified SNOMED: 63189823 (3) At high risk for falls ICD Codes: Z91.81 - History of falling SNOMED: 017077514584370948 (4) Ankle sprain ICD Codes: S93.409A - Sprain of unspecified ligament of unspecified ankle, initial encounter SNOMED: 37861422 Status: stable, not improved Assessment/Plan: po keflex po bumex monitor bs elevate legs diet reviewed declines snf(was a [employer] and doesnt like how pt were treated at snf) awaiting bariatric walker Subjective ROS Limited/Unobtainable: No Constitutional: Reports: malaise HEENT: Reports: no symptoms Cardiovascular: Reports: edema Respiratory: Reports: no symptoms Gastrointestinal/Abdominal: Reports: no symptoms Genitourinary: Reports: no symptoms Neurologic/Psychiatric: Reports: no symptoms Endocrine: Reports: no symptoms Hematologic/Lymphatic: Reports: no symptoms Allergies: Coded Allergies: CIPROFLOXACIN (Verified Allergy, Unknown, 05/13/20) LATEX (Verified Allergy, Unknown, 05/13/20) PENICILLINS (Verified Allergy, Unknown, 05/13/20) PHENYTOIN (Verified Allergy, Unknown, 05/13/20) All Systems: reviewed and negative except above Subjective no events. stable on o2. decreased sob. venous duplex neg- poor qual study. able to stand with pain. cannot walk still ucx with proteus Objective Last 24 Hour Vital Signs Date Time Temp Pulse Resp B/P (MAP) Pulse Ox O2 Delivery O2 Flow Rate FiO2 05/20/20 08:00 97.1 67 18 131/66 (87) 95 05/20/20 04:00 98.0 65 19 124/74 (91) 97 05/20/20 02:42 69 20 98 30 05/20/20 00:00 98.4 80 19 117/62 (80) 97 05/19/20 21:00 Room Air 05/19/20 20:00 98.3 80 20 132/75 (94) 96 05/19/20 16:00 98.0 65 20 124/74 (91) 97 05/19/20 12:00 98.4 69 18 119/79 (92) 97 Intake and Output 05/19/20 05/20/20 19:00 07:00 Intake Total 1400 ml 450 ml Balance 1400 ml 450 ml Intake Oral 1400 ml 450 ml # Voids 3 4 Height (Feet): 5 Height (Inches): 3.00 Weight (Pounds): 381 Objective General Appearance: WD/WN, alert, morbidly obese EENT: PERRL/EOMI, normal ENT inspection Neck: non-tender, normal alignment, supple Cardiovascular: normal peripheral pulses, normal rate Respiratory/Chest: chest wall non-tender, lungs clear, normal breath sounds Abdomen: normal bowel sounds, non tender, soft, no organomegaly Edema: 2+ Leg (L), 2+ Leg (R), 2+ Pedal (L), 2+ Pedal (R) Edema: moderate edema 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
[2020-05-20] MEDS ORDERED: Cephalexin 500mg cap ORAL SCH (10:00)
[2020-05-20] MEDS: Fluconazole 100mg tab ORAL SCH (10:06)
[2020-05-20] MEDS: Aspirin EC 81mg tab ORAL SCH (10:07)
[2020-05-20] MEDS: Spironolactone 50mg tab ORAL SCH (10:07)
[2020-05-20] MEDS: Vitamin D 400 INTLU TAB ORAL SCH (10:07)
[2020-05-20] MEDS: Bumetanide 1mg tab ORAL SCH ×2 (10:07→17:19)
[2020-05-20] MEDS: Lactulose 20gm/30ml UDC ORAL SCH ×3 (10:08→17:19)
[2020-05-20] MEDS: Enoxaparin 60mg Inj SUBQ SCH (10:10)
[2020-05-20 12:00] VITALS: BP 127/73
[2020-05-20 16:00] VITALS: BP 136/63
--- NOTE | 2020-05-21 08:30 | Progress Note ---
DATE: 05/15/2020 CARDIOLOGY PROGRESS NOTE SUBJECTIVE: The patient was seen and evaluated and case discussed with Dr. Johnston. The patient is unable to get an MRI due to her weight. She has not had any recurring falls, but is unable to walk due to knee pain. PHYSICAL EXAMINATION: VITAL SIGNS: Blood pressure 119/61, heart rate 69, respiratory rate 18, and afebrile. LUNGS: Diminished breath sounds. CARDIAC: Regular rhythm and rate. Distant S1, S2. ABDOMEN: Soft. EXTREMITIES: A 2+ dependent lower extremity edema. IMPRESSION: 1. Mechanical fall. 2. Venous insufficiency. 3. Hypertensive heart disease. 4. Acute and chronic diastolic congestive heart failure. 5. Obesity. PLAN: Titrate antihypertensives. Continue anti-platelet therapy. DVT prophylaxis. Potassium replacement and potassium-sparing diuretics. Continue Bumex for diuresis. We will follow. Royce Calloway M.D. DR: DENIS JOB#: [id number] CC:
--- NOTE | 2020-05-21 10:14 | Progress Note ---
DATE: 05/16/2020 CARDIOLOGY PROGRESS NOTE Late entry for 05/16/2020. SUBJECTIVE: The patient is still with knee pain, inability to walk as a result. Difficulty with bowel movements. Denies shortness of breath. OBJECTIVE: VITAL SIGNS: Blood pressure 138/60, pulse 72, respirations 18. Afebrile. LUNGS: Diminished breath sounds. CARDIAC: Regular rhythm and rate. Normal S1, S2. No murmur appreciated, but obesity limits exam. ABDOMEN: Obese. EXTREMITIES: With 1+ dependent edema. IMPRESSION: 1. Mechanical fall. 2. Obesity. 3. Hypertensive heart disease. 4. Venous insufficiency. 5. Acute on chronic diastolic congestive heart failure. PLAN: 1. Review echocardiogram. 2. Continue diuresis. 3. Titrate antihypertensive. 4. Physical and occupational therapies. 5. Bowel regimen. 6. DVT prophylaxis. Royce Calloway M.D. DR: NICOLE JOB#: [id number] CC:
--- NOTE | 2020-05-22 04:00 | Consultation ---
DATE OF CONSULTATION: 05/14/2020 CARDIOLOGY CONSULTATION Late entry 05/14/2020. CONSULTING PHYSICIAN: Royce Calloway MD. REFERRING PHYSICIAN: Patrick Johnston MD. REASON: Congestive heart failure evaluation. HISTORY OF PRESENT ILLNESS: This 59-year-old female admitted to the hospital yesterday. Has multiple medical problems and presented following a fall while ambulating to the bathroom. She states she slipped and fell. She does not think she lost consciousness. She complains of knee pain. She has had swelling in her legs as well and some episodes of shortness of breath. PAST MEDICAL HISTORY: Sleep apnea, obesity, carpal tunnel syndrome, prior hysterectomy, prior cholecystectomy, history of congestive heart failure, hypertensive heart disease, type 2 diabetes mellitus, degenerative disk disease. SOCIAL HISTORY: Negative for smoking, alcohol, or substance abuse. MEDICATIONS: Reviewed and reconciled. ALLERGIES: Include losartan, benazepril, Dilantin, and Lasix. REVIEW OF SYSTEMS: No history of myocardial infarction. No history of irregular heartbeats. No history of rheumatic heart disease. No history of endocarditis or cardiac valve disease. No known history of arrhythmias. No known history of abnormal blood clotting or DVT. PHYSICAL EXAMINATION: VITAL SIGNS: Blood pressure 122/67 to 150/69, heart rate 83 to 88, respiratory 18 to 21, afebrile, room air oxygen 95 to 97%. GENERAL: Morbidly obese. NECK: Jugular venous pressure difficult to assess. LUNGS: Diminished breath sounds. No wheezing or rales. CARDIAC: Regular rhythm and rate. Distant S1 and S2. No murmur appreciated. ABDOMEN: Obese, soft, and doughy. EXTREMITIES: With 1+ dependent edema. Distal pulses palpable. IMPRESSION: 1. Acute on chronic diastolic congestive heart failure. 2. Hypertensive heart disease. 3. Mechanical fall. Low likelihood of syncopal episode. 4. Microvascular atherosclerotic disease. PLAN: 1. Blood pressure monitoring and titration. 2. Periodic diuresis based on clinical parameters. 3. DVT prophylaxis. 4. Salt restriction. 5. Physical and Occupational therapy assessment. Royce Calloway M.D. : PRITI JOB#: [id number] CC:
--- NOTE | 2020-05-22 04:00 | Progress Note ---
DATE: 05/17/2020 CARDIOLOGY PROGRESS NOTE Late entry 05/17/2020 SUBJECTIVE: Patient still has leg pains and limited mobility. Diuresis is initiated. Urine output is good. Venous duplex was negative for DVT, but was a poor quality study due to patient's body habitus. PHYSICAL EXAMINATION: VITAL SIGNS: Blood pressure 142/70, heart rate 69, respirations 19, afebrile. LUNGS: Diminished breath sounds. No rales. CARDIAC: Regular rhythm rate. Normal S1, S2. No murmurs. Heart sounds are distant. ABDOMEN: Obese. No focal tenderness. EXTREMITIES: With 1+ dependent edema bilaterally. IMPRESSION: 1. Hypertensive heart disease. 2. Chronic venous insufficiency. 3. Acute on chronic diastolic congestive heart failure. 4. Obesity. 5. Mechanical fall. 6. Immobility secondary to above. PLAN: 1. Continue diuresis. 2. Monitor clinical parameters and renal function. 3. Mobilization efforts if all imaging studies rule out fractures. Royce Calloway M.D. DR: PRITI JOB#: [id number] CC:
== END 2020-05-20 18:50 | disposition home or self-care (01) | DRG 562 ==
LOC: EDBD 17:07 → EMR 17:55 → 3E 18:01 → EDBEDREQ 18:54
DX: S93.402A Sprain of unspecified ligament of left ankle, initial encounter (principal); I50.33 Acute on chronic diastolic (congestive) heart failure; Z68.44 Body mass index [BMI] 60.0-69.9, adult; E66.01 Morbid (severe) obesity due to excess calories; M25.562 Pain in left knee; W01.0XXA Fall on same level from slipping, tripping and stumbling without subsequent striking against object, initial encounter; I11.0 Hypertensive heart disease with heart failure; E11.65 Type 2 diabetes mellitus with hyperglycemia; Y92.009 Unspecified place in unspecified non-institutional (private) residence as the place of occurrence of the external cause; E03.9 Hypothyroidism, unspecified; Z88.0 Allergy status to penicillin; Z88.8 Allergy status to other drugs, medicaments and biological substances; Z88.1 Allergy status to other antibiotic agents; Z91.040 Latex allergy status; Z79.4 Long term (current) use of insulin; G47.30 Sleep apnea, unspecified; Z91.81 History of falling; I87.2 Venous insufficiency (chronic) (peripheral); R26.2 Difficulty in walking, not elsewhere classified
CPT/HCPCS: 36415; 71045; 72192; 80048; 80053; 80307; 81001; 81003; 82009; 82962; 83735; 84439; 84443; 84484; 85025; 85610; 85730; 87086; 87181; 93306; 93970; 94660; 94664; 96374; 99285; J1815; J2405; J8499; S5561; U0002